=== PATIENT | male | born 1940 | race Caucasian/White ===

== ENCOUNTER 2018-02-07 19:17 | Inpatient (IN) | payer MEDICARE ==
[~2018-02-07] VITALS: Ht 175.3 cm; Wt 90.8 kg
[2018-02-07 21:48] LABS: Hemoglobin 12.3 g/dL (13.5-17.5); Mean Corpuscular Volume 104.2 fL (80.0-100.0)
[2018-02-07 21:55] LABS: Hematocrit 35.5 % (41.0-53.0); Mean Corpuscular Hemoglobin 36.2 pg (28.0-32.0); Mean Corpuscular Hgb Conc. 34.8 g/dL (32.0-36.0); Platelet Count (auto) 511 10^3/uL (140-450); Red Blood Cells 3.41 10^6/uL (4.5-5.90); Red Cell Distribution Width 15.1 % (11.8-14.3); White Blood Cell 9.1 10^3/uL (4.4-10.8)
[2018-02-07 21:58] LABS: Basophils % (manual) 0 (0.0-2.0); Blast Cells 0; Metamyelocytes % 0; Myelocytes % 0; Promyelocytes % 0; Reactive Lymphocytes 0
[2018-02-07 22:04] LABS: INR 3.81 (0.9-1.15); Partial Thromboplastin Time 52.8 sec (23.78-33.04); Prothrombin Time 37.8 sec (9.27-12.13)
[2018-02-07 22:06] LABS: Alanine Aminotransferase 82 U/L (16-61); Albumin 2.6 g/dL (3.4-5.0); Anion Gap 10 (5-15); Aspartate Aminotransferase 125 U/L (15-37); BUN/Creatinine Ratio 31.7; Blood Urea Nitrogen 19 mg/dL (7-18); Calcium 8.6 mg/dL (8.5-10.1); Carbon Dioxide 22 mmol/L (21-32); Chloride 100 mmol/L (98-107); GFR African American 167 mL/min; GFR Non-African American 138 mL/min; Glucose 114 mg/dL (74-106); Magnesium 2.1 mg/dL (1.6-2.6); Potassium 4.6 mmol/L (3.5-5.1); Sodium 132 mmol/L (136-145)
[2018-02-07 22:11] LABS: Alkaline Phosphatase 976 U/L (45-117); Bilirubin, Total 9.2 mg/dL (0.2-1.0); Total Protein 6.1 g/dL (6.4-8.2)
[2018-02-07 23:13] LABS: Band Neutrophils % (manual) 4; Eosinophils % (manual) 4 (0-7); Lymphocytes % (manual) 8 (10.0-50.0); Monocytes % (manual) 10 (0-12)
[2018-02-07 23:13] LABS: Urine Bacteria NONE SEEN /hpf (None Seen); Urine Blood 2+ /uL (Negative); Urine Mucus FEW (None Seen); Urine Specific Gravity 1.029 (1.001-1.035); Urine WBC 4 /hpf (0 - 3)
[2018-02-07] MEDS ORDERED: HYDROcodone-ACET 5/325MG TAB PO PRN (23:15)
[2018-02-07] MEDS ORDERED: MORPHINE SULFATE 4 MG/ML SYR/VIAL IV PRN ×2 (23:15)
[2018-02-07] MEDS ORDERED: ONDANSETRON HCL 4 MG/2 ML VIAL IV PRN (23:15)
[2018-02-07] MEDS ORDERED: NITROGLYCERIN 0.4 MG SL TAB SL PRN (23:15)
[2018-02-08] VITALS (8 sets, daily range): BP systolic 130–149; BP diastolic 79–92
[2018-02-08] MEDS ORDERED: MULT-228 PO (02:00)
[2018-02-08] MEDS ORDERED: WARF1TAB36 PO (02:00)
[2018-02-08] MEDS ORDERED: METO-159 PO (02:00)
[2018-02-08] MEDS ORDERED: ONDA8TAB6 PO (02:00)
[2018-02-08] MEDS ORDERED: B CO PO (02:00)
[2018-02-08] MEDS ORDERED: DIGO0.1262 PO ×2 (02:00→09:13)
[2018-02-08] MEDS ORDERED: METOPROLOL TARTRATE 1MG/1ML-5ML VIAL IV PRN (03:15)
[2018-02-08] MEDS: ACETAMINOPHEN 500 MG TAB PO PRN (05:30)
[2018-02-08] MEDS ORDERED: DIGOXIN (250MCG/ML) 2 ML AMPULE IV ONE (06:00)
[2018-02-08 06:03] LABS: Hemoglobin 11.7 g/dL (13.5-17.5)
[2018-02-08 06:05] LABS: Hematocrit 34.1 % (41.0-53.0); Mean Corpuscular Hemoglobin 35.6 pg (28.0-32.0); Mean Corpuscular Hgb Conc. 34.4 g/dL (32.0-36.0); Mean Corpuscular Volume 103.6 fL (80.0-100.0); Platelet Count (auto) 516 10^3/uL (140-450); Red Blood Cells 3.29 10^6/uL (4.5-5.90); Red Cell Distribution Width 15.7 % (11.8-14.3); White Blood Cell 7.2 10^3/uL (4.4-10.8)
[2018-02-08 06:21] LABS: Basophils % (manual) 0 (0.0-2.0); Blast Cells 0; Metamyelocytes % 0; Promyelocytes % 0; Reactive Lymphocytes 0
[2018-02-08 06:36] LABS: Albumin 2.5 g/dL (3.4-5.0); BUN/Creatinine Ratio 35.3; Calcium 8.4 mg/dL (8.5-10.1); Potassium 4.1 mmol/L (3.5-5.1); Total Protein 5.7 g/dL (6.4-8.2)
[2018-02-08 07:19] LABS: Band Neutrophils % (manual) 2; Eosinophils % (manual) 4 (0-7); Lymphocytes % (manual) 6 (10.0-50.0); Monocytes % (manual) 4 (0-12); Myelocytes % 2
[2018-02-08] MEDS ORDERED: METO-535 PO (09:13)
[2018-02-08] MEDS ORDERED: METOPROLOL TARTRATE 1MG/1ML-5ML VIAL IV ONE (09:15)
[2018-02-08 09:31] LABS: INR 2.89 (0.9-1.15); Partial Thromboplastin Time 47.9 sec (23.78-33.04); Prothrombin Time 29.1 sec (9.27-12.13)
[2018-02-08] MEDS ORDERED: DIGOXIN 0.125 MG TAB PO SCH (10:00)
[2018-02-08] MEDS ORDERED: METOPROLOL SUCCINATE XL 50 MG TAB PO SCH (10:00)
[2018-02-08] MEDS: METOPROLOL TARTRATE 50 MG TAB PO SCH ×2 (10:00→20:03)
[2018-02-08] MEDS: DIGOXIN 0.125 MG TAB PO SCH (10:46)
[2018-02-08] MEDS ORDERED: SODIUM CHLORIDE 0.9% 1,000 ML IV ONE (13:00)
[2018-02-08] MEDS ORDERED: MORPHINE SULFATE 8mg/ml INJ SDV IV PRN ×2 (13:45)
[2018-02-08] MEDS ORDERED: DOCUSATE SOD 100 MG CAP PO PRN (14:15)
[2018-02-08] MEDS ORDERED: WARF5TAB71 PO (14:16)
[2018-02-08] MEDS ORDERED: WARFARIN SODIUM 1 MG TAB PO ONE (17:00)
[2018-02-08] MEDS: BOOST PLUS 8 ounce PO SCH (18:05)
[2018-02-09 05:00] VITALS: BP 135/87
[2018-02-09 05:46] LABS: Hemoglobin 11.8 g/dL (13.5-17.5); Mean Corpuscular Volume 103.1 fL (80.0-100.0)
[2018-02-09 05:48] LABS: Hematocrit 33.5 % (41.0-53.0); Mean Corpuscular Hemoglobin 36.3 pg (28.0-32.0); Mean Corpuscular Hgb Conc. 35.2 g/dL (32.0-36.0); Platelet Count (auto) 535 10^3/uL (140-450); Red Blood Cells 3.25 10^6/uL (4.5-5.90); Red Cell Distribution Width 15.3 % (11.8-14.3)
[2018-02-09 05:52] LABS: Band Neutrophils % (manual) 0; Basophils % (manual) 0 (0.0-2.0); Blast Cells 0; Lymphocytes % (manual) 0 (10.0-50.0); Metamyelocytes % 0; Myelocytes % 0; Promyelocytes % 0; Reactive Lymphocytes 0
[2018-02-09 05:53] LABS: INR 2.26 (0.9-1.15); Partial Thromboplastin Time 45.7 sec (23.78-33.04); Prothrombin Time 23.1 sec (9.27-12.13)
[2018-02-09 05:57] LABS: BUN/Creatinine Ratio 32.7; Calcium 8.2 mg/dL (8.5-10.1); Potassium 4.6 mmol/L (3.5-5.1)
[2018-02-09 09:00] VITALS: BP 131/78
[2018-02-09] MEDS: METOPROLOL TARTRATE 50 MG TAB PO SCH ×2 (09:08→21:41)
[2018-02-09] MEDS: DIGOXIN 0.125 MG TAB PO SCH (09:08)
[2018-02-09] MEDS: BOOST PLUS 8 ounce PO SCH ×3 (09:09→18:20)
[2018-02-09 11:32] LABS: Eosinophils % (manual) 5 (0-7); Monocytes % (manual) 4 (0-12)
[2018-02-09] MEDS: DILTIAZEM HCL 60 MG TAB PO SCH ×2 (11:51→18:20)
[2018-02-09 12:54] LABS: White Blood Cell 8.2 10^3/uL (4.4-10.8)
[2018-02-09 13:07] VITALS: BP 127/90
[2018-02-09] MEDS ORDERED: WARFARIN SODIUM 2 MG TAB PO ONE (17:00)
[2018-02-09 17:19] VITALS: BP 120/81
[2018-02-09 22:00] VITALS: BP 144/76
[2018-02-10] MEDS: DILTIAZEM HCL 60 MG TAB PO SCH ×5 (00:27→23:08)
[2018-02-10] MEDS: ACETAMINOPHEN 500 MG TAB PO PRN (03:16)
[2018-02-10 05:00] VITALS: BP 140/76
[2018-02-10 05:53] LABS: Hemoglobin 11.8 g/dL (13.5-17.5)
[2018-02-10 05:56] LABS: Hematocrit 34.7 % (41.0-53.0); Mean Corpuscular Hemoglobin 35.4 pg (28.0-32.0); Mean Corpuscular Hgb Conc. 33.9 g/dL (32.0-36.0); Mean Corpuscular Volume 104.4 fL (80.0-100.0); Platelet Count (auto) 546 10^3/uL (140-450); Red Blood Cells 3.33 10^6/uL (4.5-5.90); Red Cell Distribution Width 15.3 % (11.8-14.3); White Blood Cell 7.3 10^3/uL (4.4-10.8)
[2018-02-10 06:00] LABS: INR 2.48 (0.9-1.15); Partial Thromboplastin Time 45.4 sec (23.78-33.04); Prothrombin Time 25.2 sec (9.27-12.13)
[2018-02-10 06:11] LABS: Calcium 8.4 mg/dL (8.5-10.1); Potassium 4.3 mmol/L (3.5-5.1)
[2018-02-10 06:12] LABS: Band Neutrophils % (manual) 0; Basophils % (manual) 0 (0.0-2.0); Blast Cells 0; Metamyelocytes % 0; Promyelocytes % 0; Reactive Lymphocytes 0
[2018-02-10 06:16] LABS: Albumin 2.4 g/dL (3.4-5.0); BUN/Creatinine Ratio 39.1; Bilirubin, Total 5.9 mg/dL (0.2-1.0)
[2018-02-10] MEDS: BOOST PLUS 8 ounce PO SCH ×3 (08:27→17:34)
[2018-02-10 08:49] LABS: Eosinophils % (manual) 10 (0-7); Lymphocytes % (manual) 3 (10.0-50.0); Monocytes % (manual) 6 (0-12); Myelocytes % 2
[2018-02-10 09:00] VITALS: BP 140/75
[2018-02-10] MEDS: DIGOXIN 0.125 MG TAB PO SCH (09:37)
[2018-02-10] MEDS: METOPROLOL TARTRATE 50 MG TAB PO SCH ×2 (09:38→21:35)
[2018-02-10 13:00] VITALS: BP 133/72
[2018-02-10 17:00] VITALS: BP 126/70
[2018-02-10] MEDS ORDERED: WARFARIN SODIUM 1 MG TAB PO ONE (17:00)
[2018-02-10 22:00] VITALS: BP 145/93
[2018-02-11 05:00] VITALS: BP 128/75
[2018-02-11] MEDS: DILTIAZEM HCL 60 MG TAB PO SCH ×2 (05:40→12:23)
[2018-02-11 05:57] LABS: Hematocrit 34.5 % (41.0-53.0); Hemoglobin 11.7 g/dL (13.5-17.5); Mean Corpuscular Hemoglobin 35.2 pg (28.0-32.0); Mean Corpuscular Volume 103.7 fL (80.0-100.0); Platelet Count (auto) 554 10^3/uL (140-450); Red Blood Cells 3.33 10^6/uL (4.5-5.90); Red Cell Distribution Width 15.5 % (11.8-14.3); White Blood Cell 7.2 10^3/uL (4.4-10.8)
[2018-02-11 06:01] LABS: Basophils % (manual) 0 (0.0-2.0); Blast Cells 0; Metamyelocytes % 0; Promyelocytes % 0; Reactive Lymphocytes 0
[2018-02-11 06:06] LABS: INR 3.52 (0.9-1.15); Prothrombin Time 35.1 sec (9.27-12.13)
[2018-02-11 06:07] LABS: BUN/Creatinine Ratio 42.9; Calcium 8.3 mg/dL (8.5-10.1); Potassium 4.3 mmol/L (3.5-5.1)
[2018-02-11 08:47] VITALS: BP 129/77
[2018-02-11] MEDS: BOOST PLUS 8 ounce PO SCH ×3 (09:47→18:01)
[2018-02-11] MEDS: METOPROLOL TARTRATE 50 MG TAB PO SCH ×2 (09:48→21:30)
[2018-02-11] MEDS: DIGOXIN 0.125 MG TAB PO SCH (09:48)
[2018-02-11 10:59] LABS: Band Neutrophils % (manual) 1; Eosinophils % (manual) 15 (0-7); Lymphocytes % (manual) 5 (10.0-50.0); Monocytes % (manual) 22 (0-12); Myelocytes % 3
[2018-02-11 12:50] VITALS: BP 134/76
[2018-02-11 17:26] VITALS: BP 138/79
[2018-02-11 20:43] VITALS: BP 138/79
[2018-02-11 21:46] VITALS: BP 124/70
[2018-02-12] MEDS ORDERED: METOPROLOL TARTRATE 1MG/1ML-5ML VIAL IV ONE (02:45)
[2018-02-12 05:30] VITALS: BP 107/71
[2018-02-12 06:02] LABS: Hemoglobin 12.4 g/dL (13.5-17.5); INR 3.47 (0.9-1.15); Prothrombin Time 34.6 sec (9.27-12.13)
[2018-02-12 06:04] LABS: Hematocrit 35.3 % (41.0-53.0); Mean Corpuscular Hemoglobin 36.3 pg (28.0-32.0); Mean Corpuscular Hgb Conc. 35.1 g/dL (32.0-36.0); Mean Corpuscular Volume 103.4 fL (80.0-100.0); Platelet Count (auto) 596 10^3/uL (140-450); Red Blood Cells 3.41 10^6/uL (4.5-5.90); Red Cell Distribution Width 16.1 % (11.8-14.3); White Blood Cell 7.2 10^3/uL (4.4-10.8)
[2018-02-12 06:09] LABS: Basophils % (manual) 0 (0.0-2.0); Blast Cells 0; Promyelocytes % 0; Reactive Lymphocytes 0
[2018-02-12 06:14] LABS: BUN/Creatinine Ratio 45.2; Calcium 8.3 mg/dL (8.5-10.1); Potassium 4.2 mmol/L (3.5-5.1)
[2018-02-12 06:57] LABS: Band Neutrophils % (manual) 1; Eosinophils % (manual) 13 (0-7); Lymphocytes % (manual) 3 (10.0-50.0); Metamyelocytes % 1; Monocytes % (manual) 18 (0-12); Myelocytes % 1
[2018-02-12 08:06] VITALS: BP 112/61
[2018-02-12] MEDS: BOOST PLUS 8 ounce PO SCH ×3 (09:11→18:14)
[2018-02-12] MEDS: DIGOXIN 0.125 MG TAB PO SCH (09:12)
[2018-02-12] MEDS: METOPROLOL TARTRATE 50 MG TAB PO SCH (09:13)
[2018-02-12] MEDS ORDERED: DILTIAZEM HCL 120MG ER CAP PO SCH (10:00)
[2018-02-12 12:00] VITALS: BP 100/54
[2018-02-12 17:00] VITALS: BP 105/58
[2018-02-12 18:41] VITALS: BP 105/58
[2018-02-12 20:55] VITALS: BP 101/63
[2018-02-12] MEDS ORDERED: MEGESTROL ACETATE 20 MG TAB PO SCH (22:00)
== END 2018-02-12 20:35 | disposition short-term general hospital (02) | DRG 309 ==
LOC: EDBD 19:17 → ER 19:22 → TELE 19:23 → TELE-WESTW 23:51
PROVIDERS: ADMIT Nurse Practitioner Family; ATTEND Internal Medicine Pulmonary Disease
PROC: 5A09357 Assistance with Respiratory Ventilation, Less than 24 Consecutive Hours, Continuous Positive Airway Pressure (ICD-10-PCS; principal; 2018-02-08)
PROC: 5A09357 Assistance with Respiratory Ventilation, Less than 24 Consecutive Hours, Continuous Positive Airway Pressure (ICD-10-PCS; 2018-02-09)
PROC: 5A09357 Assistance with Respiratory Ventilation, Less than 24 Consecutive Hours, Continuous Positive Airway Pressure (ICD-10-PCS; 2018-02-10)
PROC: 5A09357 Assistance with Respiratory Ventilation, Less than 24 Consecutive Hours, Continuous Positive Airway Pressure (ICD-10-PCS; 2018-02-12)
DX: I48.91 Unspecified atrial fibrillation (principal); C18.9 Malignant neoplasm of colon, unspecified; E44.0 Moderate protein-calorie malnutrition; C81.90 Hodgkin lymphoma, unspecified, unspecified site; C78.7 Secondary malignant neoplasm of liver and intrahepatic bile duct; K59.00 Constipation, unspecified; I11.9 Hypertensive heart disease without heart failure; Z68.29 Body mass index [BMI] 29.0-29.9, adult; Z90.49 Acquired absence of other specified parts of digestive tract; Z92.21 Personal history of antineoplastic chemotherapy; Z79.899 Other long term (current) drug therapy; Z90.81 Acquired absence of spleen; Z80.1 Family history of malignant neoplasm of trachea, bronchus and lung; Z95.0 Presence of cardiac pacemaker
CPT/HCPCS: 36415; 70450; 71045; 80048; 80053; 80162; 81001; 82140; 83735; 83880; 84439; 84443; 84484; 85007; 85027; 85610; 85730; 87081; 93005; 94660; 94761; 97110; 97116; 97163; 97530; J2270